=== PATIENT | female | born 1980 | race Caucasian/White ===

== ENCOUNTER → 2017-01-22 | Outpatient (CLI) | payer OTHER, MEDICARE ==
[~2017-01-22] MED LIST: AC500T; ACHD5005 PO; ACYC200C PO; ACYC200C5 PO; ALLP100T PO; ALPR.5T; ASPI-587 PO; ASPI-875 PO; ATR20T PO; BIOT5TAB PO; CEFD250S3 GT; CHOL100061 PO; CHOL200035 PO; CLON0.5T3 PO; COLC0.6T53 PO; CPR500T PO; CYAN100053 IJ; CYAN10007 IM; FAMO20TA5 PO; FAMO40OR3 GT; FAMO40OR3 PO; FAMO40TA39 PO; FENT1PAT3 TOP; FEXO-104 PO; FLUO40CA PO; FNT100TD TD; FURO20TA PO; FURO20TA4; FURO20TA4 PO; HYDR-2889 PO; HYDR-3454 PO; HYDR-3714 PO; HYDR1CAP14; IBP200T; IBUP-30 PO; LEVO100T4 PO; LIRA0.6P SQ; LORA0.5T PO; LORA1TAB PO; LVT.15T PO; METF-380 PO; METO5TAB79 PO; MTC5U10 GT; NIA500ERT PO; ONDA-42 SL; ONDA2VIA3 IV; POTA10CA43; POTA10CA43 PO; POTA20LI2 GT; PRM25T PO; PROM12.59 PO; PROM25SU10 PR; SITA100T PO; TRM50T
--- NOTE | 2017-01-22 14:03 | Diagnostic Imaging Report ---
INDICATION: Pain. COMPARISON: None. FINDINGS: 3 views of the right fifth toe are obtained. There is a slightly impacted fracture through the distal aspect of the proximal phalanx of the right fifth toe. There is approximately 3 mm of dorsal displacement of the distal fragment. IMPRESSION: Displaced fracture through the distal aspect of the proximal phalanx of the right fifth toe. Findings were discussed with EVE Ellis, by telephone at 1:59 PM on 01/22/2017, by Dr. Teresa Chan. Dictated by: Dictated on workstation # [id number]
== END ==
LOC: RAD 12:57
PROVIDERS: ATTEND Nurse Practitioner Family
DX: S92.511A Displaced fracture of proximal phalanx of right lesser toe(s), initial encounter for closed fracture (principal); X58.XXXA Exposure to other specified factors, initial encounter; Y99.8 Other external cause status
CPT/HCPCS: 73660

== ENCOUNTER → 2017-08-31 | Outpatient (CLI) | payer OTHER, MEDICARE ==
[~2017-08-31] MED LIST changes: +CATHETER FLUSH 10 ML SYR IV PRN
[2017-08-31 08:08] VITALS: BP 115/91
[2017-08-31 08:17] VITALS: BP 136/84
[2017-08-31 08:20] VITALS: BP 163/72
[2017-08-31 08:22] VITALS: BP 151/73
--- NOTE | 2017-08-31 11:41 | STRESS TEST ---
DATE OF SERVICE: 08/31/2017 NUCLEAR MYOVIEW REPORT REFERRING PHYSICIAN: Dr. Fritz. SUMMARY: The patient was injected with 10.56 mCi of technetium-99 Myoview and the resting images were obtained with peak stress level, a 32.1 mCi of technetium-99 Myoview were injected and the stress images were acquired. The resting and stress images were reviewed and compared in the short axis, horizontal long axis, and vertical long axis views. Review of the images showed breast attenuation with no significant ischemia or infarction. SSS is 1, SDS 1, TID value of 1.1. On the gated images, the left ventricle appeared to be in normal size with normal contractility. Calculated ejection fraction of 66%. CONCLUSION: 1. Typical female pattern with no significant ischemia or infarction on SPECT images. 2. Normal left ventricular size with normal contractility. Calculated ejection fraction of 66%. Job ID: [id number] DocumentID: [id number] Dictated Date: 08/31/2017 10:15:19 [employer] Business Manager Date: 08/31/2017 11:40:29 Dictated By: WHITNEY SANCHEZ MD
== END ==
LOC: CARD 06:38
PROVIDERS: ATTEND Internal Medicine
DX: R07.9 Chest pain, unspecified (principal)
CPT/HCPCS: 78452; 93017

== ENCOUNTER 2019-01-08 10:05 | Outpatient (RCR) | payer OTHER, MEDICARE ==
[~2019-01-08 10:05] MED LIST changes: -CATHETER FLUSH 10 ML SYR IV PRN
== END 2019-04-08 | disposition home or self-care (01) ==
LOC: LAB 10:05
PROVIDERS: ATTEND Internal Medicine
DX: R19.7 Diarrhea, unspecified (principal)
CPT/HCPCS: 87015; 87045; 87046; 87324; 87328; 87329; 87449; 87899

== ENCOUNTER → 2019-08-18 | Outpatient (CLI) | payer OTHER, MEDICARE ==
--- NOTE | 2019-08-18 14:08 | Diagnostic Imaging Report ---
PROCEDURE: CT sinuses without contrast TECHNIQUE: Multiple contiguous axial images were obtained through the sinuses without the use of intravenous contrast. Coronal and sagittal reformations were then performed. Auto Exposure Controls were utilized during the CT exam to meet ALARA standards for radiation dose reduction. INDICATION: History of sinus infections and headaches. COMPARISON: 04/20/2009. FINDINGS: Evaluation of the paranasal sinuses demonstrates minimal mucosal thickening of the right maxillary sinus. Otherwise, paranasal sinuses are clear. No abnormal air-fluid levels are identified. There is no acute fracture of the paranasal sinuses. Nasal bones are intact. Nasal septum is essentially midline. There is small laurence bullosa of the right middle turbinate. Remainder of the visualized facial bones have normal CT appearance. No lytic or blastic bony lesions are seen. No other acute osseous abnormalities are identified. Included portions of intracranial structures show no additional acute abnormalities. Globes are symmetric. No unexpected radiopaque foreign bodies are seen. IMPRESSION: 1. Unremarkable noncontrast CT of the paranasal sinuses. Dictated by: Dictated on workstation # [id number]
== END ==
LOC: RAD 13:41
PROVIDERS: ATTEND Internal Medicine
DX: J01.80 Other acute sinusitis (principal)
CPT/HCPCS: 70486

== ENCOUNTER → 2020-03-09 | Outpatient (CLI) | payer OTHER, MEDICARE ==
--- NOTE | 2020-03-09 08:41 | Diagnostic Imaging Report ---
INDICATION: Bilateral hand pain AP, oblique, and lateral views of both hands are obtained. No fracture or acute bony abnormality is seen. Joint spaces appear unremarkable throughout. There is no lytic or blastic lesion. IMPRESSION: Negative bilateral hands. Dictated by: Dictated on workstation # [id number]
== END ==
LOC: RAD 07:35
PROVIDERS: ATTEND Internal Medicine
DX: M13.841 Other specified arthritis, right hand (principal); M13.842 Other specified arthritis, left hand

== ENCOUNTER → 2022-11-14 | Outpatient (CLI) | payer OTHER, MEDICARE | LOC: CARD 13:57 | PROVIDERS: ATTEND Internal Medicine Gastroenterology | DX: I10 Essential (primary) hypertension (principal) | CPT/HCPCS: 93005 ==